=== PATIENT | male | born 2000 | race Caucasian/White ===

== ENCOUNTER 2022-04-01 16:11 | Emergency (ER) | payer SELFPAY ==
[2022-04-01] MEDS ORDERED: cefTRIAXone\\ROCEPHIN 500 MG VIAL ONE (17:39)
[2022-04-01 17:58] LABS: Bilirubin Neg (Negative); Blood, Urine Negative (Negative); Clarity Clear (Clear); Glucose, Urine (Dipstick) Normal (Negative); Ketone, Urine Negative (Negative); Leukocyte Negative (Negative); Nitrite Negative (Negative); Protein, Urine (Dipstick) Negative (Neg-Trace); Urobilinogen Normal mg/dL (Less than 2); pH, Urine 6.5 (5.0-9.0)
[2022-04-02 16:09] LABS: Chlam.trachomatis by PCR,Urine Not Detected (NotDetected)
== END 2022-04-01 17:43 | disposition home or self-care (01) ==
LOC: CSHERS 16:11
DX: Z20.2 Contact with and (suspected) exposure to infections with a predominantly sexual mode of transmission (principal)
CPT/HCPCS: 81003; 87491; 87591; 96372; 99283; J0696